=== PATIENT | female | born 1960 | race Caucasian/White ===

== ENCOUNTER 2022-04-30 07:16 | Outpatient (CLI) | payer BC, SELFPAY ==
--- OUTSIDE RECORDS SUMMARY | 2022-05-21 16:38 | XMS_ITS | Continuity of Care Document ---
:1960 Author Organization [facility] Address [address] [address] [place] [address] Phone Care Team Providers Name Role Phone Funmi Panda MD Unavailable Unavailable Allergies, Adverse Reactions, Alerts Substance Reaction Status Criticality No Known allergies Medications Medication Instructions Dosage Effective Dates Status Comment s (start - stop) lisinopril 20 mg Tab take 1 tablet (20MG) 20 MG - Activ e by oral route every day simvastatin 20 mg Tab take 1 tablet (20MG) 20 MG - Acti ve by oral route every day in the morning Procedures Procedure Date Colonoscopy Flex; Dx (sep Pro) Advance Directives Directive Yes / No Effective Date File Name Resuscitation Not Answered N/A N/A Life Support Not Answered N/A N/A Intubation Not Answered N/A N/A Antibiotics Not Answered N/A N/A IV Fluid Support Not Answered N/A N/A Tube Feed Not Answered N/A N/A Other Directive N/A N/A WARNING:The information contained in this section is historical and is provided for information onlyand does not constitute a legal document or any assurance that the information is still accurate. Please verify the information with the melo of the legal document before using it for clinical purposes. Encounters Encounter Practice Location Reason(s) Diagnoses Date Provider Provide rs Description For Visit Copied on Encounter LUIS SMITH Family Hx/Colonic Amarilys [facility] PolypsColon Cancer 1- Sandra. Stephanie de: [place] ScreeningDiverticul 1 [address], [address], [address] [place]on Cancer [place], [address], [place], ScreeningHemorrhoid 500, 600, [id number], s NosDiverticulosis [place], [place], [place], [address]. tel: Hx/Colonic Polyps [phone] t el:[phone] , [place]. [id number] tel: [phone] Family History Family Member Type Diagnosis Age At Onset No Information Payers Payer name Insurance type Covered green party ID Authorization(s ) [facility] [id number] Social History Type Description Quantity Date Captured Comments Alcohol Use Details Unknown Caffeine Use Details Unknown Tobacco Use Status No Information Smoking Status No Information Sex Female Chief Complaint And Reason For Visit No Information Reason For Referral Reason For Referral No Information Plan Of Treatment Date Type Action Status No Information History Of Present Illness Encounter Date Complaint History Of Present I llness No Information Functional Status Date Functional Assessment No Information Instructions Date Instruction Additional Informati on No Information Assessments Type Assessment Date No Information Patient Care Teams Name Effective Dates (start - stop) Status M embkody No Information
== END 2022-04-30 07:17 | disposition home or self-care (01) ==
PROVIDERS: PCP Family Medicine; Referring Provider Nurse Practitioner Family; Visit Provider Surgery
DX: K57.32 Diverticulitis of large intestine without perforation or abscess without bleeding (principal); K63.5 Polyp of colon; K64.4 Residual hemorrhoidal skin tags; K57.30 Diverticulosis of large intestine without perforation or abscess without bleeding
CPT/HCPCS: 45385; 88305; 99153; J2250; J3010

== ENCOUNTER 2022-06-27 07:34 | Outpatient (CLI) | payer BC, SELFPAY ==
--- OUTSIDE RECORDS SUMMARY | 2022-06-27 07:46 | XMS_ITS | Clinical Summary ---
:1960 Author Organization [email or web address] [place] [address] Care Team Providers Name Role Phone Pcp, No Primary Care Provider Unavailable Allergies No known active allergies Medications Medication Sig Dispensed Refills Start Date End Date Status lisinopril (PRINIVIL; Take 1 tablet by 0 01/16/2015 Active ZESTRIL) 10 mg tablet mouth once daily. simvastatin (ZOCOR) 20 Take 1 tablet by 0 01/16/2015 Active mg tablet mouth at bedtime. Active Problems No known active problems Encounters Date Type Specialty Care Team Description 04/30/2022 Lab Requisition Cheryl Porter MD from Last 3 Months Social History Tobacco Use Types Packs/Day Years Used Date Former Smoker Quit: 01/16/19 94 Smokeless Tobacco: Never Used Tobacco Cessation: Counseling Given: Yes Alcohol Use Standard Drinks/Week Comments Not Asked 0 (1 standard drink = 0.6 oz pure alcoho l) Sex Assigned at Date Recorded Not on file Obstetrics History Last Filed Vital Signs Vital Sign Reading Time Taken Comments Blood Pressure 130/77 01/16/2015 12:17 PM CDT Pulse 61 01/16/2015 12:17 PM CDT Temperature 36.9 ??C (98.5 ??F) 01/16/2015 12:17 PM CDT Respiratory Rate - - Oxygen Saturation 98% 01/16/2015 12:17 PM CDT Inhaled Oxygen Concentration - - Weight 89 kg (196 lb 4 oz) 01/16/2015 12:17 PM CDT Height - - Body Mass Index - - Plan of Treatment Health Maintenance Due Date Last Done Comments COVID-19 vaccine series (#1) 1960 Tdap 1971 Depression screening for age 12+ 1972 BMI (ht and wt on same day) for age 18+ 1978 Hepatitis C screening for age 18-79 1978 Tetanus booster 1980 Colonoscopy through age 75 2005 Lipids for age 45-75 2005 Mammogram for age 45-75 2005 Zoster (shingles) series for age 50+ (1 of 2010 2) Pap test for age 21-65 09/24/2020 09/24/2017, 09/24/2017 Influenza for age 50-64 06/13/2022 Procedures Procedure Name Priority Date/Time Associated Diagnosis Comme nts LAB TRACKING EVENT Routine 04/30/2022 8:23 AM CDT PATH TISSUE EXAM Routine 04/30/2022 8:23 AM Resul ts for this CDT procedure are i n the results section. from Last 3 Months Results LAB TRACKING EVENT (04/30/2022 8:23 AM CDT) Specimen Anatomical Collection Method Collection Time Receive d Time (Source) Location / / Volume Laterality Other (Other) Client Collect / 04/30/2022 8:23 AM 04/12 9:28 Unknown CDT PM CDT Cheryl Porter MD LAB BILL ONLY Performing Organization Address City/State/ZIP Code Phon e Number [facility] [phone] [place] [address] LABORATORY-CENTRAL 2000 LABORATORY PATH TISSUE EXAM (04/30/2022 8:23 AM CDT) Component Value Ref Test Analysis Performed At [facility] gist Range Method Time Signature Case Report Pathology Report ?Case: [id number] ? 05/02/2022 [facility] Authorizing Provider: ??Cheryl Triana MD ??Collected: ? 04/30/2022 0823 ? 1:50 PM CDT LABORAT ORY-CE Ordering Location: ? [facility] CENTRAL LAB ?Received: ?05/01/2022 1011 ? NT [facility] Pathologist: ? Duncan Lora, ? LABORATORY ? MD ? Specimen: ?Cecum Biopsy ? Final A) COLON, CECUM, POLYPECTOMY: 05/02/2022 [facility] Electronically Diagnosis 1. Normal colonic mucosa (clinically, 1 polyp) 1:50 PM CDT LABORATORY-CE signed by 2. Negative for serrated change, dysplasia, and malignancy NTRAL DAMIAN Lora MD on 05/02 at 1:50 PM Clinical Ms. Barajas is a 05/02/2022 [facility] Information 62 y.o. who 1:50 PM CDT LABORATORY-CE presents for NTRAL follow-up of LABORATORY diverticulitis . Gross A) Received in formalin are 4 gunderson mucosal fragments ranging from 3 mm to 5 mm in greatest dimension, which are entirely submitted in one cassette. It is labeled with the patient's name and designated cecum biopsy. 05/02/2022 [facility] Description 1:50 PM CDT LABORATORY-CE Rose Kohli 05/01/2022 12:14 PM NTRAL LABORATORY Microscopic The final 05/02/2022 [facility] Description diagnosis is 1:50 PM CDT LABORATORY-CE based on NTRAL microscopic LABORATORY examination of appropriate sections of all specimens. Additional 05/02/2022 [facility] Information Interpreted at [facility], Central Laboratory - [address], [place] [address] 1:50 PM CDT LABORATORY-CE NTRAL LABORATORY Specimen Anatomical Collection Method Collection Time Receive d Time (Source) Location / / Volume Laterality Other (Cecum 04/30/2022 8:23 AM 2 Biopsy) CDT 10:11 AM CDT Cheryl Porter MD PATHOLOGY/CYTOLOGY Performing Organization Address City/State/ZIP Code Phon e Number [facility] [address] [place] [address] LABORATORY-CENTRAL 2000 LABORATORY from Last 3 Months Insurance Payer Benefit Plan / Subscriber ID Effective Dates Phone Addre ss Type Group BLUE CROSS BLUE CROSS OF [id number] 2014-Present [address] [address] [place] [address] Care Teams Nutrition Representative Relationship Specialty Start Date End Date Pcp, No PCP - General 01/16/15 .
[2022-06-27 10:03] LABS: Albumin* 4.5 g/dL (3.3-5.0)
[2022-06-27 10:04] LABS: Chloride* 103 mmol/L (96-114); Potassium* 4.4 mmol/L (3.6-5.1); Sodium* 139 mmol/L (135-149)
[2022-06-27 10:06] LABS: Aspartate Amino Transferase* 34 U/L (12-35); Bilirubin Total* 0.6 mg/dL (0.1-1.5); Carbon Dioxide* 30 mmol/L (20-32); Cholesterol* 217 mg/dL (90-199); Creatinine* 0.6 mg/dL (0.5-1.5); Estimated Glomerular Filt Rate 101 ml/min
[2022-06-27 10:07] LABS: Alanine Aminotransferase* 31 U/L (4-35); Alkaline Phosphatase* 77 U/L (40-150); Blood Urea Nitrogen* 18 mg/dL (7-30); Calcium* 9.1 mg/dL (8.4-10.6); Glucose* 100 mg/dL (60-115); HDL Cholesterol* 66 mg/dL (>=50); LDL Cholesterol Calculated 127 mg/dL (<100); Triglycerides* 121 mg/dL (40-149)
[2022-06-27 10:23] LABS: Vitamin D 25 Hydroxy* 44 ng/mL (30-80)
== END 2022-06-27 07:35 | disposition home or self-care (01) ==
PROVIDERS: PCP Family Medicine; Visit Provider Family Medicine
DX: Z01.419 Encounter for gynecological examination (general) (routine) without abnormal findings (principal); E78.5 Hyperlipidemia, unspecified; I10 Essential (primary) hypertension; E55.9 Vitamin D deficiency, unspecified; E66.9 Obesity, unspecified
CPT/HCPCS: 80053; 80061; 82306

== ENCOUNTER 2022-07-05 10:22 | Outpatient (CLI) | payer BC, SELFPAY ==
--- OUTSIDE RECORDS SUMMARY | 2022-07-05 10:24 | XMS_ITS | Clinical Summary ---
:1960 Author Organization [facility] [place] [address] Care Team Providers Name Role Phone Pcp, [...] Organization Address City/State/ZIP Code Phon e Number [facility] [address] [place] [address] LABORATORY-CENTRAL 2000 LABORATORY PATH TISSUE EXAM (04/30/2022 8:23 AM CDT) Component Value Ref Test Analysis Performed At [facility] gist Range Method Time Signature Case Report Pathology Report ?Case: [id number] ? 05/02/2022 [facility] Authorizing Provider: ??Cheryl Triana MD ??Collected: ? 04/30/2022 0823 ? 1:50 PM CDT LABORAT ORY-CE Ordering Location: ? [facility] CENTRAL LAB ?Received: ?05/01/2022 1011 ? NT [facility] Pathologist: ? Duncan Lora, ? LABORATORY ? MD ? Specimen: ?Cecum Biopsy ? Final A) COLON, CECUM, POLYPECTOMY: 05/02/2022 [facility] Electronically Diagnosis 1. Normal colonic mucosa (clinically, 1 polyp) 1:50 PM CDT LABORATORY-CE signed by 2. Negative for serrated change, dysplasia, and malignancy NTRAL DAMIAN Lora MD on 05/02 at 1:50 PM Clinical Ms. Barajas is a 05/02/2022 [facility] Information 62 y.o. who 1:50 PM CDT LABORATORY-CE presents for NTRAL follow-up of LABORATORY diverticulitis . Gross A) Received in formalin are 4 gunderson mucosal fragments ranging from 3 mm to 5 mm in greatest dimension, which are entirely submitted in one cassette. It is labeled with the patient's name and designated cecum biopsy. 05/02/2022 [facility] Description 1:50 PM CDT LABORATORY-CE Rose Kohli 05/01/2022 12:14 PM NTRAL LABORATORY Microscopic The final 05/02/2022 [facility] Description diagnosis is 1:50 PM CDT LABORATORY-CE based on NTRAL microscopic LABORATORY examination of appropriate sections of all specimens. Additional 05/02/2022 [facility] Information Interpreted at [facility], Central Laboratory - [address], [place] [address] 1:50 PM CDT LABORATORY-CE NTRAL LABORATORY Specimen Anatomical Collection Method Collection Time Receive d Time (Source) Location / / Volume Laterality Other (Cecum 04/30/2022 8:23 AM 2 Biopsy) CDT 10:11 AM CDT Cheryl Porter MD PATHOLOGY/CYTOLOGY Performing Organization Address City/State/ZIP Code Phon e Number [facility] [address] [place] [address] LABORATORY-CENTRAL 2000 LABORATORY from Last 3 Months Insurance Payer Benefit Plan / Subscriber ID Effective Dates Phone Addre ss Type Group BLUE CROSS BLUE CROSS OF [id number] 2014-Present [address] [address] [place] [address] Care Teams Materials Clerk Relationship Specialty Start Date End Date Pcp, No PCP - General 01/16/15 .
== END 2022-07-05 10:23 | disposition home or self-care (01) ==
LOC: NFLDREF 10:22
PROVIDERS: PCP Family Medicine; Visit Provider Family Medicine
DX: Z00.00 Encounter for general adult medical examination without abnormal findings (principal); I10 Essential (primary) hypertension; E66.9 Obesity, unspecified; E78.5 Hyperlipidemia, unspecified; E55.9 Vitamin D deficiency, unspecified
CPT/HCPCS: 86617; 86618

== ENCOUNTER 2022-08-15 10:02 | Outpatient (CLI) | payer BC, SELFPAY ==
--- OUTSIDE RECORDS SUMMARY | 2022-08-15 10:14 | XMS_ITS | Clinical Summary ---
:1960 Author Organization [employer] [facility] [place] [address] Care Team Providers Name Role Phone Pcp, [...] bedtime. Active Problems No known active problems Social History Tobacco Use Types Packs/Day Years [...] 09/24/2017, 09/24/2017 Influenza for age 50-64 06/13/2022 Results Not on filefrom Last 3 Months Insurance Payer Benefit Plan / Subscriber ID Effective Dates Phone Addre ss Type Group BLUE CROSS BLUE CROSS OF [id number] 2014-Present [address] [address] [place] [address] Care Teams Archaeology Professor Relationship Specialty Start Date End Date Pcp, No PCP - General 01/16/15 .
--- NOTE | 2022-08-15 10:15 | MR_ITS ---
[address] [address] Phone:?[phone] Fax:?[phone] Referring Physician Information: Hector Kendall M.D. [address] [place] [address] Phone:?[phone] Fax:?[phone] Patient:Silvia Barajas D.O.B:?1960 Sex:?Female Phone:?[phone] [facility] MRN:?[id number] Exam Date:?08/15/2022 ? EXAM: MRI of the LEFT KNEE, without contrast CLINICAL HISTORY: Left knee pain. Evaluate for meniscal and cartilage pathology. COMPARISONS: None available. TECHNICAL: MR sequences of the left knee: sagittals: PD, PDFS coronals: PD, STIR axials: PD, T2 FS CONTRAST: None SEDATION: None FINDINGS: Bones: No fracture, bone marrow contusion, or other suspicious bone marrow signal abnormality. 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 Retinacula: The medial and lateral retinacula are intact. Fat pads: Edema-like signal within the superolateral portion of the infrapatellar fat pad is associated with patellar tendon-lateral femoral condyle friction/patellar maltracking. The Insall Salvati index is within normal limits. The lateral trochlear inclination angle measures 14 degrees. The tibial tubercle to trochlear groove distance measures 1.6-1.7 cm. Knee joint: Effusion: Small left knee joint effusion. Popliteal cyst: None. Intra-articular bodies: None. Medial compartment: Medial meniscus: There is free edge and inferiorly surfacing fraying versus ill- defined degenerative tearing of the body of the medial meniscus best seen on coronal series 7 images 17 and 18. A small focus of intermediate proton-density signal within the posterior horn of the medial meniscus does not clearly reach an articular surface and so does not meet MRI criteria for meniscal tear. No unstable medial meniscal tear is seen. Cartilage: Tiny 1 x 1 mm near full-thickness chondral defect over the mid weightbearing portion of the medial femoral condyle best seen on coronal series 7 image 17 superimposed upon more diffuse grade I to II chondromalacia over the mid weightbearing portion of the medial femoral condyle. Lateral compartment: Lateral meniscus: Free edge fraying versus ill-defined degenerative free edge tearing of the body of the lateral meniscus best seen on coronal series 7 images 17 and 18. No unstable lateral meniscal tear is seen. Cartilage: Single obliquely oriented near full-thickness chondral fissure over the posterior weightbearing portion of the lateral femoral condyle best seen on coronal series 8 image 21 and sagittal series 6 image 22. 2.0 cm in AP dimension by 1.0 cm in transverse dimension area of grade II chondromalacia over the central and posterior portions of the lateral tibial plateau. Ligaments: Anterior cruciate ligament: Intact. Posterior cruciate ligament: Intact. Medial collateral ligament: Intact. Posterior oblique ligament: Intact. Fibular collateral ligament: Intact. Posterolateral corner: The distal biceps femoris tendon, iliotibial band, popliteus tendon, popliteus muscle, popliteofibular ligament, and arcuate ligament are intact. Posteromedial corner: The semimembranosus and pes anserine tendons are intact. Extensor mechanism: Patellar tendon: Intact. Quadriceps tendon: Intact. IMPRESSION: 1. 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 2. Edema-like signal within the superolateral portion of the infrapatellar fat pad is associated with patellar tendon-lateral femoral condyle friction/patellar maltracking. The tibial tubercle to trochlear groove distance measures 1.6-1.7 cm. The Insall Salvati index index and lateral trochlear inclination angle measurements are within normal limits. 3. Tiny 1 x 1 mm near full-thickness chondral defect over the mid weightbearing portion of the medial femoral condyle superimposed upon more diffuse grade I to II chondromalacia over the mid weightbearing portion of the medial femoral condyle. 4. 2.0 x 1.0 cm area of grade II chondromalacia over the central and posterior portions of the lateral tibial plateau and single obliquely oriented near full- thickness chondral fissure over the posterior weightbearing portion of the lateral femoral condyle. 5. Free edge and inferiorly surfacing fraying versus ill-defined degenerative tearing of the body of the medial meniscus. A small focus of intermediate signal within the posterior horn of the medial meniscus does not clearly reach an articular surface and so does not meet MRI criteria for medial meniscal tear. No unstable medial meniscal tear. 6. Free edge fraying versus ill-defined degenerative free edge tear of the body of the lateral meniscus. No unstable lateral meniscal tear. 7. Small left knee joint effusion. 8. No ligamentous injury of the left knee. RCB Electronically signed on 08/15/2022 12:35:00 PM by Heath Glaser M.D.
== END 2022-08-15 10:03 | disposition home or self-care (01) ==
LOC: MRI 10:02
PROVIDERS: PCP Family Medicine; Visit Provider Orthopaedic Surgery
DX: M25.562 Pain in left knee (principal); M22.42 Chondromalacia patellae, left knee; S83.282A Other tear of lateral meniscus, current injury, left knee, initial encounter; M25.462 Effusion, left knee
CPT/HCPCS: 73721

== ENCOUNTER 2022-08-16 08:00 | Outpatient (RCR) | payer BC, SELFPAY | END 2023-05-01 23:59 | disposition home or self-care (01) | PROVIDERS: PCP Family Medicine; Visit Provider Orthopaedic Surgery | DX: M17.11 Unilateral primary osteoarthritis, right knee (principal); Z51.89 Encounter for other specified aftercare | CPT/HCPCS: 97110; 97112; 97161 ==

== ENCOUNTER 2022-09-13 11:14 | Outpatient (CLI) | payer BC, SELFPAY ==
--- OUTSIDE RECORDS SUMMARY | 2022-09-13 11:17 | XMS_ITS | Continuity of Care Document ---
:1960 Author Organization [facility] Address [address] [address] [place] [address] Phone Care Team Providers Name Role Phone [...] Cancer 1- Sandra. Stephanie de: [place], [place] ScreeningDiverticul 1 [address] [place], [address] [address], [address] [place] NosColon Cancer [place], [address], [place], ScreeningHemorrhoid 500, 600, [id number], s NosDiverticulosis [place], [place], [address]. tel: Hx/Colonic Polyps [phone] t el:[phone] , [place]. [id number] tel: [phone] Family History Family Member Type Diagnosis Age At Onset No Information Payers Payer name Insurance type Covered green party ID Authorization(s ) [facility] [id number] Social History Type Description Quantity Date Captured [...]
--- OUTSIDE RECORDS SUMMARY | 2022-09-13 11:17 | XMS_ITS | Clinical Summary ---
:1960 Author Organization [facility] [place] [address] Care Team Providers Name Role Phone Pcp, [...] 1971 Depression screening for age 12+ 1972 HIV for age 15-65 1975 BMI (ht and wt on same day) [...] Type Group BLUE CROSS BLUE CROSS OF [id number] 2014-Present [address] [address] [place] [address] Care Teams Renal Nurse Relationship Specialty Start Date End Date Pcp, No PCP - General 01/16/15 .
--- NOTE | 2022-09-13 11:30 | CRLHL7_ITS ---
For Patients: As a result of the Century Cures Act, medical imaging exams and procedure reports are released immediately into your electronic medical record. You may view this report before your referring provider. If you have questions, please contact your health care provider. BILATERAL SCREENING MAMMOGRAM WITH COMPUTER-AIDED DETECTION AND TOMOSYNTHESIS TECHNIQUE: CC and MLO views were obtained. These mammographic images have been obtained using full-field digital technique. These mammographic images were interpreted with the benefit of computer-aided detection. Breast Tomosynthesis was used in this interpretation. COMPARISON FILM: 06/11/21, 05/26/20, 02/04/19 FINDINGS: There are scattered areas of fibroglandular density IMPRESSION: There is no radiographic evidence for malignancy. ASSESSMENT: BI-RADS Category 1: Negative RECOMMENDATION: Routine screening mammogram in 1 year. A lay language report of this examination will be provided to the patient. Bruce Amin M.D. Diagnostic Radiologist [email or web address] [email or web address] Transcribed: 3:02 p.henry mckeon/Dictated by: Bruce Amin MD @ 09/13/2022 12:17:00 PM (Electronically Signed)
== END 2022-09-13 11:15 | disposition home or self-care (01) ==
LOC: MAMMO 11:15
PROVIDERS: PCP Family Medicine; Visit Provider Family Medicine
DX: Z12.31 Encounter for screening mammogram for malignant neoplasm of breast (principal)
CPT/HCPCS: 77063; 77067

== ENCOUNTER 2023-09-01 07:50 | Outpatient (CLI) | payer BC, SELFPAY ==
--- OUTSIDE RECORDS SUMMARY | 2023-09-05 10:24 | XMS_ITS | Continuity of Care Document ---
Author Name Unknown Organization [facility] Address [address] [place] [address] Phone Care Team Providers Care Teacher Dramatics Name Role Phone Juan Francisco Fletcher MD Unavailable Unavailable Procedures Procedure Date Office/Outpatient Visit,[facility] [place] Advance Directives Directive Yes / No Effective Date File Name No Information Encounters Encounter Description Practice Location Reason(s) For Visit Diagnoses Date Provider Providers Copied on Encounter [facility], [address], [place], [place], [id number], [place] tel:[phone] [facility] No Information 1 Justine Chicas. [facility], [address] [place] [address], [place], [place], [id number], [place]. tel:[phone] Office/Outpat ient Visit,[facility], [facility], [address], [place], [place], [id number], [place] tel:[phone] [facility] [place] No Information 1 Claudio Dawn. [facility], [address] [place] [address], [place], [place], [id number], [place]. tel:[phone] Referring Provider: Keyana Smith, [address], [address]. tel:[phone] [facility], [address], [place], [place], [id number], [place] tel:[phone] [facility] [place] Cervical disc disorder with radiculopathy, cervicothoracic region Sep-0 1 Justine Chicas. [facility], [address], [place], [place], [id number], [place]. tel:[phone] Referring Provider: Juan Francisco Rizo, [facility] [address], [place], [address]. tel:[phone] Family History Family Member Type Diagnosis Age At Onset No Information Payers Payer name Insurance type Covered constitution party ID [place] dum[place] [id number] [place] [id number] Social History Type Description Quantity Date Captured Comments Sex Female Smoking Status No Information Chief Complaint And Reason For Visit No Information Reason For Referral Reason For Referral No Information History Of Present Illness Encounter Date Complaint History Of Prese nt Illness No Information Functional Status Date Functional Assessmen t No Information Instructions Date Instruction Additional Infor mation No Information Assessments Type Assessment Date No Information Patient Care Teams Name Effective Dates (start - stop) Status Members No Information
== END 2023-09-01 07:51 | disposition home or self-care (01) ==
LOC: NFLDREF 09-05 10:21
PROVIDERS: PCP Family Medicine; Referring Provider Family Medicine; Visit Provider Family Medicine
DX: E55.9 Vitamin D deficiency, unspecified (principal); I10 Essential (primary) hypertension; E78.5 Hyperlipidemia, unspecified
CPT/HCPCS: 80053; 80061; 82306

== ENCOUNTER 2023-09-16 18:17 | Outpatient (CLI) | payer BC, SELFPAY ==
--- OUTSIDE RECORDS SUMMARY | 2023-09-16 18:20 | XMS_ITS | Continuity of Care Document ---
Author Name Unknown Organization [facility] Address [address] [place] [address] Phone Care Team Providers Care Radiology Teacher Name Role Phone Juan Francisco Fletcher MD Unavailable Unavailable Procedures Procedure Date Office/Outpatient Visit,[facility] [place] 2020 Advance Directives Directive Yes / No Effective Date File Name No Information Encounters Encounter Description Practice Location Reason(s) For Visit Diagnoses Date Provider Providers Copied on Encounter [facility], [address], [place], [place], [id number], [place] tel:[phone] [facility] No Information 1 Justine Chicas. [facility], [address] [place] [address], [place], [place], [id number], [place]. tel:[phone] Office/Outpat ient Visit,[facility], [facility], [address], [place], [place], [id number], [place] tel:[phone] [facility] No Information 1 Claudio Dawn. [facility], [address] [place] [address], [place], [place], [id number], [place]. tel:[phone] Referring Provider: Keyana Smith, [address], [address]. tel:[phone] [facility], [address], [place], [place], [id number], [place] tel:[phone] [facility] Cervical disc disorder with radiculopathy, cervicothoracic region Sep-0 1 Justine Chicas. [facility], [address], [place], [place], [id number], [place]. tel:[phone] Referring Provider: Juan Francisco Rizo, [facility] [place] [address], [place], [address]. tel:[phone] Family History Family Member Type Diagnosis Age At Onset No Information Payers Payer name Insurance type Covered alliance party ID Authorchika dum[place] [id number] [place] [id number] Social History Type Description Quantity Date Captured [...]
== END 2023-09-16 18:18 | disposition home or self-care (01) ==
PROVIDERS: PCP Family Medicine; Visit Provider Nurse Practitioner Family
DX: R31.9 Hematuria, unspecified (principal)
CPT/HCPCS: 81015; 87086

== ENCOUNTER 2024-02-18 14:48 | Outpatient (CLI) | payer BC, SELFPAY ==
--- OUTSIDE RECORDS SUMMARY | 2024-02-18 14:53 | XMS_ITS | Clinical Summary ---
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 0 01/16/2015 Active simvastatin (ZOCOR) 20 mg tablet Take 1 tablet by mouth at bedtime. 0 01/16/2015 Active Active Problems No known active problems Social History Tobacco Use Types Packs/Day Years Used Date Smoking Tobacco: Former Cigarettes Q uit: 01/16/1994 Smokeless Tobacco: Never Tobacco Cessation:Counseling Given: Yes Alcohol Use Standard Drinks/Week Comments Not Asked 0 (1 standard drink = 0.6 oz pur e alcohol) Sex and Gender Information Value Date Recorded Sex Assigned at Not on file Gender Identity Not on file Sexual Orientation Not on file Obstetrics History Last Filed Vital Signs Vital Sign Reading Time Taken Comments Blood Pressure 130/77 01/16/2015 12:17 PM CDT Pulse 61 01/16/2015 12:17 PM CDT Temperature 36.9 ??C (98.5 ??F) 01/16/2015 12:17 PM C DT Respiratory Rate - - Oxygen Saturation 98% 01/16/2015 12:17 PM CDT Inhaled Oxygen Concentration - - Weight 89 kg (196 lb 4 oz) 01/16/2015 12:17 PM C DT Height - - Body Mass Index - - Plan of Treatment Health Maintenance Due Date Last Done Comments Tdap 1971 Depression screening for age 12+ 1972 HIV for age 15-65 1975 BMI (ht and wt on same day) for age 18+ 1978 Hepatitis C screening for age 18-79 1978 Tetanus booster 1980 Colonoscopy through age 75 2005 Lipids for age 45-75 2005 Mammogram for age 45-75 2005 Zoster (shingles) series for age 50+ (1 of 2) 2010 COVID-19 vaccine series (2022-24 season) 2023 Influenza for age 50-64 06/13/2024 Pap test for age 21-65 02/21/2026 3, 02/21/2023, 09/24/2017, Additional history exists Pneumococcal series for age 6-64 Aged Out No longer eligible based on patient's age to complete this topic Procedures Procedure Name Priority Date/Time Associated Diagnosis Comments HPV THIN PREP Routine 02/21/2023 8:45 AM CDT from Last 3 Months or Most Recently Relevant to Health Maintenance Results * HPV HIGH RISK (02/21/2023 8:45 AM CDT) TYPE 16 Negative Negative 02/26/2023 11:37 AM CDT [facility] TYPE 18 Negative Negative 02/26/2023 11:37 AM CDT [facility] OTHER HIGH RISK TYPES Negative Negative 02/26/2023 11:37 AM CDT [facility] Other (Cervical) 02/21/2023 8:45 AM CDT 02/24/2023 2:02 PM CDT [facility] - 02/26/2023 11:37 AM CDT HPV types 16, 18, 31, 33, 35, 39, 45, 51, 52, 56, 58, 59, 66 and 68 DNA were undetectable or below the pre-set threshold. Methodology: Norberto Agnes 4800 HPV Test Mariaelena Seaman MD MICROBIOLOGY [facility] [address] [place] [address], [place] from Last 3 Months or Most Recently Relevant to Health Maintenance Care Teams Hub Cutter Relationship Specialty Start Date End Date Pcp, No . PCP - General 01/16/15
--- OUTSIDE RECORDS SUMMARY | 2024-02-18 14:53 | XMS_ITS | Continuity of Care Document ---
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 [facility], [address] [place] [address], [place], [place], [id number], [place]. tel:[phone] Office/Outpat ient Visit,[facility], [facility], [address], [place], [place], [id number], [place] tel:[phone] [facility] No Information 1 Claudio Dawn. [facility], [address] [place] [address], [place], [place], [id number], [place]. tel:[phone] Referring Provider: Keyana Smith, [address], [address]. tel:[phone] [facility], [address], [place], [place], [id number], [place] tel:[phone] [facility] Cervical disc disorder with radiculopathy, cervicothoracic region Sep-0 1 Justine Chicas. [facility], [address], [place], [place], [id number], [place]. tel:[phone] Referring Provider: Juan Francisco Rizo, [facility] [address], [place], [address]. tel:[phone] Family History Family Member Type Diagnosis Age At Onset No Information Payers Payer name Insurance type Covered green party ID Authorchika dumas([place]) [place] [id number] [place] [id number] Social History Type Description Quantity Date Captured [...]
--- NOTE | 2024-02-18 15:00 | MM_ITS ---
Patient: BERT LUNA Facility:?[facility] Patient ID:?[id number] Site Patient ID:?[id number] Site :?1960 Study:?XRay-Breast Bilateral 3D W/CAD-02/18/2024 3:12:20 PM Ordering Physician:Keyana Feng Final Report: BILATERAL SCREENING MAMMOGRAM WITH COMPUTER-AIDED DETECTION AND TOMOSYNTHESIS TECHNIQUE: CC and MLO views were obtained. These mammographic images have been obtained using full-field digital technique. These mammographic images were interpreted with the benefit of computer-aided detection. Breast Tomosynthesis was used in this interpretation. COMPARISON FILM: 09/13/22, 06/11/21, 05/26/20. FINDINGS: There are scattered areas of fibroglandular density. IMPRESSION: There is no radiographic evidence for malignancy. ASSESSMENT: BI-RADS Category 1: Negative RECOMMENDATION: Routine screening mammogram in 1 year. A lay language report of this examination will be provided to the patient. Bruce Amin M.D. Diagnostic Radiologist [email or web address] NICANOR/sp R& Transcribed: 7:44 p.m. SP/Dictated by: Bruce Amin MD @ 02/19/2024 8:35:00 AM Signed by:?Burce Amin MD @02/19/2024 8:30:04 PM (Electronic Signature)
== END 2024-02-18 14:49 | disposition home or self-care (01) ==
LOC: MAMMO 14:50
PROVIDERS: PCP Family Medicine; Visit Provider Family Medicine
DX: Z12.31 Encounter for screening mammogram for malignant neoplasm of breast (principal)
CPT/HCPCS: 77063; 77067